=== PATIENT | female | born 1975 | race Two or more races ===

== ENCOUNTER → 2017-07-04 | Emergency (ER) | payer OTHER ==
[~2017-07-04] VITALS: Ht 172.7 cm; Wt 132.9 kg
[~2017-07-04] MED LIST: CELEBREX100 MG PO; OSEL75CA PO; PROTONIX40 M1 PO; PROTONIX40 MG; PROVENTIL3 ML/2.5 M IH; SKELAXIN800 MG PO; TENCON 50-3251 EACH; TIGAN300 MG; TUSSI PRES-B L120 M1 PO; ZANTAC150 MG; ZANTAC300 MG PO
== END | disposition home or self-care (01) ==
LOC: ER 09:24
DX: B34.9 Viral infection, unspecified (principal)

== ENCOUNTER → 2017-11-01 | Emergency (ER) | payer OTHER ==
[~2017-11-01] VITALS: Ht 172.7 cm; Wt 122.5 kg
== END | disposition home or self-care (01) ==
LOC: ER 20:17
DX: J32.8 Other chronic sinusitis (principal)

== ENCOUNTER 2017-11-11 11:20 | Outpatient (CLI) | payer OTHER | END 2017-11-11 11:33 | disposition home or self-care (01) | LOC: RAD 501 11:20 | DX: J44.1 Chronic obstructive pulmonary disease with (acute) exacerbation (principal); J01.90 Acute sinusitis, unspecified ==

== ENCOUNTER 2018-05-06 11:20 | Outpatient (CLI) | payer OTHER ==
[~2018-05-06] VITALS: Ht 172.7 cm; Wt 127.0 kg
[2018-05-06] MEDS ORDERED: FLONASE16 GM NASAL (11:56)
== END 2018-05-06 11:40 | disposition home or self-care (01) ==
LOC: OFIC 805 11:20
DX: E66.8 Other obesity (principal); Z68.35 Body mass index [BMI] 35.0-35.9, adult; J31.0 Chronic rhinitis; G47.33 Obstructive sleep apnea (adult) (pediatric); J34.2 Deviated nasal septum; J35.1 Hypertrophy of tonsils; R06.09 Other forms of dyspnea

== ENCOUNTER 2019-02-22 10:58 | Outpatient (CLI) | payer OTHER ==
[~2019-02-22 10:58] MED LIST changes: +FLONASE16 GM NASAL
== END 2019-02-22 11:01 | disposition home or self-care (01) ==
LOC: RAD 10:58
DX: E66.8 Other obesity (principal); I10 Essential (primary) hypertension; G47.33 Obstructive sleep apnea (adult) (pediatric)

== ENCOUNTER 2019-04-06 08:23 | Emergency (ER) | payer OTHER ==
[~2019-04-06] VITALS: Ht 172.7 cm; Wt 127.0 kg
== END 2019-04-06 09:24 | disposition home or self-care (01) ==
LOC: ER 08:23
DX: S93.401A Sprain of unspecified ligament of right ankle, initial encounter (principal); X50.0XXA Overexertion from strenuous movement or load, initial encounter; Y93.89 Activity, other specified; Y92.89 Other specified places as the place of occurrence of the external cause; Y99.8 Other external cause status

== ENCOUNTER 2020-10-21 10:43 | Emergency (ER) | payer OTHER ==
[~2020-10-21] VITALS: Ht 172.7 cm; Wt 129.3 kg
== END 2020-10-21 12:23 ==
LOC: ER 10:43
DX: S33.5XXA Sprain of ligaments of lumbar spine, initial encounter (principal); M54.5 Low back pain; X50.0XXA Overexertion from strenuous movement or load, initial encounter; Y93.89 Activity, other specified; Y92.89 Other specified places as the place of occurrence of the external cause; Y99.8 Other external cause status

== ENCOUNTER 2020-10-26 12:53 | Outpatient (CLI) | payer OTHER ==
[2020-11-01] MEDS ORDERED: NORFLEX100MG PO (13:42)
[2020-11-01] MEDS ORDERED: DICLOFENAC SODI75 MG PO (13:42)
== END 2020-10-26 13:44 | disposition home or self-care (01) ==
LOC: RAD 12:53
PROVIDERS: ATTEND Internal Medicine
DX: M54.5 Low back pain (principal)

== ENCOUNTER 2021-01-03 13:48 | Emergency (ER) | payer OTHER ==
[~2021-01-03] VITALS: Ht 172.7 cm; Wt 127.0 kg
[~2021-01-03 13:48] MED LIST changes: +DICLOFENAC SODI75 MG PO; +NORFLEX100MG PO
[2021-01-03] MEDS ORDERED: CARAFATE1 GM PO (18:01)
[2021-01-03] MEDS ORDERED: PEPCID AC20 MG PO (18:01)
[2021-01-03] MEDS ORDERED: MAALOX MAXIMUM355 ML PO (18:01)
== END 2021-01-03 18:21 ==
LOC: ER 13:48
DX: K52.9 Noninfective gastroenteritis and colitis, unspecified (principal)

== ENCOUNTER 2021-01-23 07:19 | Outpatient (CLI) | payer OTHER ==
[~2021-01-23 07:19] MED LIST changes: +CARAFATE1 GM PO; +MAALOX MAXIMUM355 ML PO; +PEPCID AC20 MG PO
== END 2021-01-23 07:30 | disposition home or self-care (01) ==
LOC: SONOGRAMA 07:19
PROVIDERS: ATTEND Internal Medicine
DX: R94.5 Abnormal results of liver function studies (principal); R10.84 Generalized abdominal pain; N28.89 Other specified disorders of kidney and ureter

== ENCOUNTER 2021-02-19 08:25 | Outpatient (CLI) | payer OTHER | END 2021-02-19 08:46 | disposition home or self-care (01) | LOC: MAMO-SONO 08:25 | PROVIDERS: ATTEND Obstetrics & Gynecology | DX: N60.11 Diffuse cystic mastopathy of right breast (principal); N60.12 Diffuse cystic mastopathy of left breast; Z12.31 Encounter for screening mammogram for malignant neoplasm of breast ==

== ENCOUNTER 2022-05-09 13:19 | Emergency (ER) | payer OTHER ==
[~2022-05-09] VITALS: Ht 172.7 cm; Wt 117.9 kg
== END 2022-05-09 16:46 | disposition home or self-care (01) ==
LOC: ER 13:19
DX: M62.838 Other muscle spasm (principal)

== ENCOUNTER 2022-07-23 13:21 | Outpatient (CLI) | payer OTHER | END 2022-07-23 13:29 | disposition home or self-care (01) | LOC: RAD 13:21 | PROVIDERS: ATTEND Internal Medicine | DX: M54.2 Cervicalgia (principal) ==

== ENCOUNTER 2022-10-07 08:20 | Outpatient (CLI) | payer OTHER | END 2022-10-07 08:53 | disposition home or self-care (01) | LOC: SONOGRAMA 08:20 | PROVIDERS: ATTEND Obstetrics & Gynecology | DX: Z12.31 Encounter for screening mammogram for malignant neoplasm of breast (principal); N60.11 Diffuse cystic mastopathy of right breast; N60.12 Diffuse cystic mastopathy of left breast ==

== ENCOUNTER 2022-12-19 11:01 | Emergency (ER) | payer OTHER ==
[~2022-12-19] VITALS: Ht 172.7 cm; Wt 129.7 kg
[2022-12-19] MEDS ORDERED: OSEL75CA PO (14:21)
[2022-12-19] MEDS ORDERED: TUSNEL LIQUID178 ML PO (14:21)
== END 2022-12-19 14:28 | disposition home or self-care (01) ==
LOC: ER 11:01
DX: J10.1 Influenza due to other identified influenza virus with other respiratory manifestations (principal); Z88.8 Allergy status to other drugs, medicaments and biological substances; Z20.822 Contact with and (suspected) exposure to COVID-19

== ENCOUNTER → 2025-05-06 | Emergency (ER) | payer OTHER ==
[~2025-05-06] VITALS: Ht 172.7 cm; Wt 116.1 kg
[~2025-05-06] MED LIST changes: +ADVIL DUAL ACT1 EACH PO; +AMOX-CLAV 875-1 EAC1 PO; +TUSNEL LIQUID178 ML PO
[2025-05-06 12:10] LABS: BASO % 0.4 % (0.1-1.2); EOS # 0.11 (0.04-0.54); EOS % 1.6 % (0.7-7.0); LYMPH # 2.05 (1.18-3.74); LYMPH % 30.6 % (19.3-53.1); MEAN PLATELET VOLUME 10.40 fl (9.4-12.4); MONO # 0.28 (0.24-0.82); MONO % 4.2 % (4.7-12.5); NEUT # 4.23 (1.56-6.13); NEUT % 63.1 % (34.0-71.1); RED CELL DISTRIBUTION WIDTH 12.5 % (11.6-14.4)
[2025-05-06 12:35] LABS: COVID-19 AG NEGATIVE (NEGATIVE)
[2025-05-06 12:38] LABS: BUN CREA RATIO 18.0 (7.0-25.0); CREATININE SERUM 0.67 mg/dL (0.55-1.02); GFR 94.34; GLUCOSE FASTING 110.0 mg/dL (65-100); OSMOLALITY SERUM 284.0 MOSM/KG (275-295)
== END | disposition home or self-care (01) ==
LOC: ER 08:00
PROVIDERS: Emergency Medicine
DX: R53.1 Weakness (principal); Z88.8 Allergy status to other drugs, medicaments and biological substances; Z20.822 Contact with and (suspected) exposure to COVID-19